=== PATIENT | female | born 1955 | race Caucasian/White ===

== ENCOUNTER 2024-08-22 07:32 | Outpatient (CLI) | payer BC ==
[2024-08-22] MEDS ORDERED: Iopamidol 370 76% 100 ML VIAL ONE (13:33)
== END 2024-08-22 07:33 | disposition home or self-care (01) ==
LOC: CSHCT 07:32
PROVIDERS: ATTEND Family Medicine
DX: R10.9 Unspecified abdominal pain (principal); K80.20 Calculus of gallbladder without cholecystitis without obstruction; K57.30 Diverticulosis of large intestine without perforation or abscess without bleeding; K59.00 Constipation, unspecified
CPT/HCPCS: 74178; Q9967